=== PATIENT | male | born 1955 | race African-American/Black ===

== ENCOUNTER 2022-12-04 23:12 | Inpatient (IN) | payer MEDICARE, MEDICAID ==
[~2022-12-04] VITALS: Ht 190.5 cm; Wt 105.2 kg
[2022-12-04] MEDS ORDERED: ASPIRIN 81MG TABLET PO ONE (23:45)
[2022-12-05] MEDS: NITROGLYCERIN 0.4MG TABLET SL SL PRN ×2 (00:17→06:53)
[2022-12-05 00:39] LABS: BASOPHILS % 0.1 % (0.0-2.0); HEMOGLOBIN. 18.6 g/dL (14.0-18.0); LYMPHOCYTES % 10.3 % (20.0-50.0); MEAN CORPUSCULAR HEMOGLOBIN 29.9 pg (28.0-32.0); MEAN CORPUSCULAR VOLUME 88.2 fL (80.0-94.0); MEAN PLATELET VOLUME 8.6 fl (7.4-10.4); MONOCYTES % 6.9 % (2.0-8.0); NEUTROPHILS % 82.7 % (40.0-76.0); PLATELET 314 x1000/uL (130-400); RED BLOOD CELL COUNT 6.23 mill/uL (4.7-6.1); RED CELL DISTRIBUTION WIDTH 14.4 % (11.6-14.6)
[2022-12-05 00:46] LABS: CHLORIDE 90 mEq/L (98-107)
[2022-12-05] MEDS ORDERED: CEFTRIAXONE 1 G PREMIX 50 ML IV ONE (05:30)
[2022-12-05] MEDS ORDERED: METRONIDAZOLE 500 MG PREMIX 100 ML IV ONE (05:30)
[2022-12-05] MEDS ORDERED: ACETAMINOPHEN 325MG TABLET PO PRN ×2 (10:15)
[2022-12-05] MEDS ORDERED: IPRATROPIUM/ALBUTEROL 0.5-3(2.5)MG/3ML NEB NEB PRN (10:15)
[2022-12-05] MEDS ORDERED: SODIUM CHLORIDE 0.9% 1,000 ML IV ONE (10:15)
[2022-12-05] MEDS ORDERED: MAGNESIUM/ALUMINUM HYDROXIDE/SIMETHICONE 30ML UDC PO PRN (10:15)
[2022-12-05] MEDS ORDERED: HYDROCODONE/ACETAMINOPHEN 5/325MG TABLET PO PRN (10:15)
[2022-12-05] MEDS ORDERED: ONDANSETRON HCL 4MG/2ML INJ IV PRN (10:15)
[2022-12-05] MEDS ORDERED: DOCUSATE SODIUM 100MG CAPSULE PO PRN (10:15)
[2022-12-05] MEDS ORDERED: GUAIFENESIN 200MG/10ML SUGAR FREE UDC PO PRN (10:15)
[2022-12-05] MEDS ORDERED: NALOXONE HCL 0.4MG/ML VIAL IV PRN (10:45)
[2022-12-05] MEDS: ENOXAPARIN 40MG/0.4ML SYR SUBCUT SCH (11:00)
[2022-12-05 19:36] LABS: CREATINE KINASE MB FRACTION 4.4 ng/mL (0.5-3.6)
[2022-12-05 22:00] VITALS: BP 135/83
[2022-12-05] MEDS: SODIUM CHLORIDE 0.9% 1,000 ML IV SCH (23:12)
[2022-12-06] VITALS (7 sets, daily range): BP systolic 147–172; BP diastolic 74–97
[2022-12-06 01:13] LABS: CREATINE KINASE MB FRACTION 3.2 ng/mL (0.5-3.6)
[2022-12-06 03:10] LABS: CLARITY URINE CLEAR (CLEAR); COLOR URINE YELLOW (YELLOW); KETONES URINE NEGATIVE (NEGATIVE); LEUKOCYTE ESTERASE URINE NEGATIVE (NEGATIVE); NITRITE URINE NEGATIVE (NEGATIVE); OCCULT BLOOD URINE NEGATIVE (NEGATIVE); PROTEIN URINE 1+ (NEGATIVE); SPECIFIC GRAVITY URINE 1.026 (1.005-1.030)
[2022-12-06 03:51] LABS: SODIUM URINE RANDOM < 5 mEq/L
[2022-12-06 04:01] LABS: *AMPHETAMINES SCREEN URINE NEGATIVE (NEGATIVE); *BARBITURATES SCREEN URINE NEGATIVE (NEGATIVE); *BENZODIAZEPINES SCREEN URINE NEGATIVE (NEGATIVE); *COCAINE SCREEN URINE PRESUMTIVE POSITIVE (NEGATIVE); CANNABINOID URINE SCREEN NEGATIVE (NEGATIVE); METHADONE URINE SCREEN NEGATIVE (NEGATIVE); OPIATES URINE SCREEN PRESUMTIVE POSITIVE (NEGATIVE); PHENCYCLIDINE URINE SCREEN NEGATIVE (NEGATIVE); UREA NITROGEN URINE RANDOM 1414 mg/dL
[2022-12-06] MEDS: SODIUM CHLORIDE 0.9% 1,000 ML IV SCH ×2 (04:10→09:12)
[2022-12-06 06:49] LABS: BASOPHILS % 0.2 % (0.0-2.0); EOSINOPHILS % 0.3 % (0.0-5.0); HEMATOCRIT. 50.5 % (42.0-52.0); LYMPHOCYTES % 17.2 % (20.0-50.0); MEAN PLATELET VOLUME 8.4 fl (7.4-10.4); MONOCYTES % 9.5 % (2.0-8.0); NEUTROPHILS % 72.8 % (40.0-76.0); PLATELET 187 x1000/uL (130-400); RED BLOOD CELL COUNT 5.49 mill/uL (4.7-6.1); RED CELL DISTRIBUTION WIDTH 14.7 % (11.6-14.6)
[2022-12-06 07:07] LABS: HEPATITIS B SURFACE ANTIGEN NEGATIVE
[2022-12-06 07:11] LABS: FOLIC ACID (FOLATE) SERUM 16.4 ng/mL (>5.38)
[2022-12-06] MEDS ORDERED: NA PHOS,M-B/NA PHOS,DI-BA ENEMA 118ML PR NR (09:00)
[2022-12-06] MEDS: CLONIDINE 0.1MG TABLET PO PRN ×2 (09:12→17:22)
[2022-12-06 09:37] LABS: PHOSPHORUS 3.3 mg/dL (2.5-4.9); T4 FREE 1.28 ng/dL (0.76-1.46)
[2022-12-06] MEDS: ENOXAPARIN 40MG/0.4ML SYR SUBCUT SCH (10:56)
[2022-12-06] MEDS ORDERED: POTASSIUM CHLORIDE INJ 40 MEQ in DEXT 5% WATER 250 ML IV ONE (13:15)
[2022-12-06] MEDS: KCL 20MEQ/100ML X 2 FOR TOTAL KCL 40MEQ/200ML IV SCH ×2 (14:36→16:38)
[2022-12-06] MEDS ORDERED: ALBUTEROL (0.083%) 2.5MG/3ML NEB HHN PRN (23:30)
[2022-12-06] MEDS ORDERED: IPRATROPIUM BROMIDE (0.02%) 0.5MG/2.5ML NEB HHN PRN (23:30)
[2022-12-07] VITALS: BP 167/88
[2022-12-07] MEDS: CLONIDINE 0.1MG TABLET PO PRN (00:18)
[2022-12-07] MEDS: SODIUM CHLORIDE 0.9% 1,000 ML IV SCH ×4 (00:23→21:43)
[2022-12-07 06:00] VITALS: BP 166/93
[2022-12-07 06:40] LABS: CHLORIDE 95 mEq/L (98-107)
[2022-12-07 06:51] LABS: INR 1.1; PROTHROMBIN TIME 11.3 sec (9.6-11.0)
[2022-12-07 07:01] LABS: BASOPHILS % 0.2 % (0.0-2.0); EOSINOPHILS % 0.2 % (0.0-5.0); HEMATOCRIT. 46.9 % (42.0-52.0); HEMOGLOBIN. 16.1 g/dL (14.0-18.0); LYMPHOCYTES % 16.9 % (20.0-50.0); MEAN CORPUSCULAR HEMOGLOBIN 30.6 pg (28.0-32.0); MEAN PLATELET VOLUME 8.4 fl (7.4-10.4); MONOCYTES % 11.6 % (2.0-8.0); NEUTROPHILS % 71.1 % (40.0-76.0); PLATELET 232 x1000/uL (130-400); RED BLOOD CELL COUNT 5.27 mill/uL (4.7-6.1); RED CELL DISTRIBUTION WIDTH 14.6 % (11.6-14.6)
[2022-12-07 08:51] VITALS: BP 155/75
[2022-12-07] MEDS: KCL 20MEQ/100ML X 2 FOR TOTAL KCL 40MEQ/200ML IV SCH ×2 (09:57→11:56)
[2022-12-07] MEDS ORDERED: POTASSIUM CHLORIDE INJ 40 MEQ in DEXT 5% WATER 250 ML IV ONE (10:00)
[2022-12-07] MEDS: ENOXAPARIN 40MG/0.4ML SYR SUBCUT SCH (10:35)
[2022-12-07 12:00] VITALS: BP 128/83
[2022-12-07 16:00] VITALS: BP 179/93
[2022-12-07] MEDS: HYDRALAZINE 20MG/ML VIAL IV PRN (16:57)
[2022-12-07 20:00] VITALS: BP 152/77
[2022-12-08] VITALS: BP 137/69
[2022-12-08 04:00] VITALS: BP 151/83
[2022-12-08 04:10] LABS: *CREATININE RANDOM URINE 220.8 mg/dL (Not Estab.); MICROALBUMIN RANDOM URINE 47.8 ug/mL (Not Estab.)
[2022-12-08] MEDS: SODIUM CHLORIDE 0.9% 1,000 ML IV SCH ×4 (04:47→23:32)
[2022-12-08 05:55] LABS: BASOPHILS % 0.2 % (0.0-2.0); EOSINOPHILS % 0.5 % (0.0-5.0); HEMATOCRIT. 41.4 % (42.0-52.0); HEMOGLOBIN. 14.3 g/dL (14.0-18.0); MEAN CORPUSCULAR HEMOGLOBIN 30.4 pg (28.0-32.0); MEAN CORPUSCULAR VOLUME 88.1 fL (80.0-94.0); MEAN PLATELET VOLUME 8.1 fl (7.4-10.4); MONOCYTES % 10.8 % (2.0-8.0); NEUTROPHILS % 70.5 % (40.0-76.0); PLATELET 234 x1000/uL (130-400); RED CELL DISTRIBUTION WIDTH 13.9 % (11.6-14.6)
[2022-12-08 06:00] LABS: CHLORIDE 97 mEq/L (98-107)
[2022-12-08 08:00] VITALS: BP 153/79
[2022-12-08] MEDS: ENOXAPARIN 40MG/0.4ML SYR SUBCUT SCH (10:59)
[2022-12-08] MEDS ORDERED: POTASSIUM CHLORIDE INJ 40 MEQ in DEXT 5% WATER 250 ML IV ONE (11:45)
[2022-12-08 12:00] VITALS: BP 157/99
[2022-12-08] MEDS ORDERED: BISACODYL 10MG SUPP PR NR (13:15)
[2022-12-08] MEDS ORDERED: BISACODYL 10MG SUPP PR ONE (13:15)
[2022-12-08] MEDS: KCL 20MEQ/100ML X 2 FOR TOTAL KCL 40MEQ/200ML IV SCH ×2 (13:23→14:36)
[2022-12-08 16:00] VITALS: BP 188/101
[2022-12-08] MEDS: HYDRALAZINE 20MG/ML VIAL IV PRN (16:43)
[2022-12-08 20:00] VITALS: BP 170/85
[2022-12-08] MEDS: CLONIDINE 0.1MG TABLET PO PRN (20:45)
[2022-12-09] VITALS (7 sets, daily range): BP systolic 132–159; BP diastolic 65–92
[2022-12-09 05:29] LABS: BASOPHILS % 0.2 % (0.0-2.0); EOSINOPHILS % 0.7 % (0.0-5.0); HEMATOCRIT. 44.3 % (42.0-52.0); HEMOGLOBIN. 14.9 g/dL (14.0-18.0); LYMPHOCYTES % 22.5 % (20.0-50.0); MEAN CORPUSCULAR HEMOGLOBIN 30.1 pg (28.0-32.0); MEAN CORPUSCULAR VOLUME 89.7 fL (80.0-94.0); MONOCYTES % 9.5 % (2.0-8.0); NEUTROPHILS % 67.1 % (40.0-76.0); PLATELET 233 x1000/uL (130-400); RED BLOOD CELL COUNT 4.94 mill/uL (4.7-6.1); RED CELL DISTRIBUTION WIDTH 13.9 % (11.6-14.6)
[2022-12-09] MEDS: SODIUM CHLORIDE 0.9% 1,000 ML IV SCH ×3 (05:30→18:35)
[2022-12-09 05:59] LABS: CHLORIDE 101 mEq/L (98-107)
[2022-12-09] MEDS ORDERED: BISACODYL 10MG SUPP PR NR (09:00)
[2022-12-09] MEDS: ENOXAPARIN 40MG/0.4ML SYR SUBCUT SCH (10:00)
[2022-12-09] MEDS ORDERED: POTASSIUM CHLORIDE INJ 40 MEQ in DEXT 5% WATER 250 ML IV ONE (17:30)
[2022-12-09] MEDS: KCL 20MEQ/100ML X 2 FOR TOTAL KCL 40MEQ/200ML IV SCH ×2 (18:34→20:40)
[2022-12-10] VITALS: BP 159/84
[2022-12-10] MEDS: SODIUM CHLORIDE 0.9% 1,000 ML IV SCH (00:09)
[2022-12-10 00:15] VITALS: BP 170/100
[2022-12-10] MEDS: CLONIDINE 0.1MG TABLET PO PRN (00:16)
[2022-12-10 04:00] VITALS: BP 153/79
[2022-12-10 06:42] LABS: BASOPHILS % 0.4 % (0.0-2.0); HEMATOCRIT. 41.9 % (42.0-52.0); HEMOGLOBIN. 14.5 g/dL (14.0-18.0); LYMPHOCYTES % 23.5 % (20.0-50.0); MEAN CORPUSCULAR HEMOGLOBIN 30.5 pg (28.0-32.0); MEAN CORPUSCULAR VOLUME 87.9 fL (80.0-94.0); MEAN PLATELET VOLUME 8.1 fl (7.4-10.4); MONOCYTES % 9.7 % (2.0-8.0); NEUTROPHILS % 65.4 % (40.0-76.0); PLATELET 244 x1000/uL (130-400); RED BLOOD CELL COUNT 4.77 mill/uL (4.7-6.1); RED CELL DISTRIBUTION WIDTH 13.6 % (11.6-14.6)
[2022-12-10 07:36] LABS: CHLORIDE 108 mEq/L (98-107)
[2022-12-10 08:00] VITALS: BP 152/80
[2022-12-10] MEDS ORDERED: MOM PO (10:43)
[2022-12-10] MEDS ORDERED: WHEA152P PO (10:43)
[2022-12-10 10:45] VITALS: BP_SYST 148; BP_SYST 152; BP_DIAS 76; BP_DIAS 80
[2022-12-10] MEDS: ENOXAPARIN 40MG/0.4ML SYR SUBCUT SCH (11:00)
== END 2022-12-10 11:25 | disposition home or self-care (01) | DRG 247 ==
LOC: ER 23:12 → 8WST 12-05 05:19 → EDBEDREQ 12-05 05:25 → EDBEDREQTM 12-05 05:25 → SUPCPDRO 12-05 10:12
PROVIDERS: ADMIT Internal Medicine; ATTEND Internal Medicine
PROC: 02HV33Z Insertion of Infusion Device into Superior Vena Cava, Percutaneous Approach (ICD-10-PCS; principal; 2022-12-07)
PROC: B5181ZA Fluoroscopy of Superior Vena Cava using Low Osmolar Contrast, Guidance (ICD-10-PCS; 2022-12-07)
PROC: B548ZZA Ultrasonography of Superior Vena Cava, Guidance (ICD-10-PCS; 2022-12-07)
DX: K56.699 Other intestinal obstruction unspecified as to partial versus complete obstruction (principal); N17.0 Acute kidney failure with tubular necrosis; E87.6 Hypokalemia; Z20.822 Contact with and (suspected) exposure to COVID-19; K56.41 Fecal impaction; I10 Essential (primary) hypertension; F11.90 Opioid use, unspecified, uncomplicated
CPT/HCPCS: 36415; 36573; 71045; 74018; 74176; 76705; 76770; 80048; 80053; 80061; 80305; 81003; 82043; 82550; 82553; 82570; 82607; 82746; 83036; 83735; 83880; 84100; 84300; 84439; 84443; 84484; 84540; 85025; 86803; 87340; 87426; 93005; 93306; 97162; 97165; 99285; C1725; C1893; J0360; J0696; J1650; J3480; J3490